=== PATIENT | male | born 1995 ===

== ENCOUNTER 2020-11-25 11:44 | Emergency (ER) | payer OTHER ==
[~2020-11-25] VITALS: Ht 167.6 cm; Wt 71.7 kg
[2020-11-25 11:51] VITALS: BP 111/75
== END 2020-11-25 14:10 | disposition home or self-care (01) ==
LOC: ER 11:45
DX: M54.2 Cervicalgia (principal); M25.562 Pain in left knee; M25.561 Pain in right knee; Z88.1 Allergy status to other antibiotic agents; V87.7XXA Person injured in collision between other specified motor vehicles (traffic), initial encounter; Y93.89 Activity, other specified; Y92.89 Other specified places as the place of occurrence of the external cause; Y99.8 Other external cause status
CPT/HCPCS: 99282; 99283